=== PATIENT | female | born 1955 | race African-American/Black ===

== ENCOUNTER 2023-03-19 13:49 | Emergency (ER) | payer BC, OTHER ==
[~2023-03-19] VITALS: Ht 160 cm; Wt 54.4 kg
[2023-03-19 13:54] VITALS: BP_SYST 149
--- NOTE | 2023-03-19 14:10 | NUR ---
PT BIB AWAKE AND ALERT AOX4. NO SOB. PT C/O OF L EYE REDNESS STARTING LAST NIGHT. PT DENIES PAIN. PT HAS A HX OF HTN, DM2, ASTHMA, ANXITY, DM2.
--- NOTE | 2023-03-19 14:12 | NUR ---
MD DR OCHOA AT BEDSIDE
[2023-03-19 14:47] VITALS: BP_SYST 136
--- NOTE | 2023-03-19 14:48 | NUR ---
Patient given written and verbal discharge instructions and verbalizes understanding. ER MD DR OCHOA discussed with patient the results and treatment provided. Patient in stable condition. ID arm band removed. Patient educated on pain management and to follow up with PMD. Pain Scale 0/10. Opportunity for questions provided and answered. Medication side effect fact sheet provided.
== END 2023-03-19 14:48 | disposition home or self-care (01) ==
LOC: SED 13:49
DX: H11.32 Conjunctival hemorrhage, left eye (principal); H57.89 Other specified disorders of eye and adnexa; E11.9 Type 2 diabetes mellitus without complications; I10 Essential (primary) hypertension; Z79.899 Other long term (current) drug therapy
CPT/HCPCS: 99281

== ENCOUNTER 2023-11-20 15:52 | Emergency (ER) | payer OTHER ==
[~2023-11-20] VITALS: Ht 165.1 cm; Wt 65.8 kg
[2023-11-20] MEDS ORDERED: MECLIZINE HCL 25 MG TABLET (ANITVERT) PO ONE (16:30)
[2023-11-20] MEDS ORDERED: METOCLOPRAMIDE HCL 10 MG/2 ML VIAL IVP ONE (16:30)
[2023-11-20 16:31] VITALS: BP_SYST 144; PULSE 93; RESP 17; TEMP 98.7; O2SAT 98
[2023-11-20 16:59] LABS: BASOPHILS % (AUTO) 0.5 % (0.0-2.0); EOSINOPHILS # (AUTO) 0.2 K/uL (0.0-0.4); EOSINOPHILS % (AUTO) 2.1 % (0.0-4.0); HEMATOCRIT 35.7 % (36-48); LYMPHOCYTES # (AUTO) 1.8 K/uL (1.0-5.5); LYMPHOCYTES % (AUTO) 23.9 % (20.5-51.5); MEAN CORPUSCULAR HEMOGLOBIN 27 pg (27-31); MEAN CORPUSCULAR HGB CONC 34 % (32-36); MEAN CORPUSCULAR VOLUME 80 fL (79.0-98.0); MONOCYTES # (AUTO) 0.4 K/uL (0.0-1.0); MONOCYTES % (AUTO) 5.6 % (1.7-9.3); NEUTROPHILS # (AUTO) 5.1 K/uL (1.8-7.7); NEUTROPHILS % (AUTO) 67.9 % (40.0-70.0); PLATELET COUNT (AUTO) 227 K/uL (130-430); RED BLOOD CELL COUNT(AUTO) 4.48 MIL/uL (4.2-6.2); WHITE BLOOD COUNT (AUTO) 7.5 K/uL (4.8-10.8)
[2023-11-20 17:08] LABS: ANION GAP 12 (5-15); CALCIUM 9.3 mg/dL (8.4-11.0); CARBON DIOXIDE 23 mmol/L (23-29); CHLORIDE 103 mmol/L (98-107); CREATININE 1.07 mg/dL (0.55-1.30); GLUCOSE 189 mg/dL (74-106); POTASSIUM 3.7 mmol/L (3.5-5.1); SODIUM SERUM 138 mmol/L (136-145); UREA NITROGEN, BLOOD 11 mg/dL (8-21)
[2023-11-20 17:13] LABS: ALANINE AMINOTRANSFERASE 33 U/L (12-78); ALBUMIN 3.7 g/dL (3.4-4.8); ASPARTATE AMINOTRANSFERASE 21 U/L (10-37); BILIRUBIN,DIRECT 0.1 mg/dL (0.0-0.3); CREATINE KINASE, TOTAL 73 U/L (26-192); TOTAL BILIRUBIN 0.3 mg/dL (0.0-1.0)
[2023-11-20 17:18] LABS: GFR AFRICAN AMERICAN 65 mL/min (>90); GFR NON AFRICAN-AMERICAN 54 mL/min (>90)
[2023-11-20 17:23] LABS: PROTHROMBIN TIME 10.1 SECS (9.5-12.5)
[2023-11-20] MEDS ORDERED: MECL-261 PO (18:26)
[2023-11-20] MEDS ORDERED: MECLIZINE HCL 25 MG TABLET (ANITVERT) ONE (18:45)
[2023-11-20 19:11] VITALS: BP_SYST 146; PULSE 95; RESP 15; TEMP 98.7; O2SAT 99
== END 2023-11-20 19:11 | disposition home or self-care (01) ==
LOC: SED 15:52
DX: R42 Dizziness and giddiness (principal); R11.0 Nausea; E11.9 Type 2 diabetes mellitus without complications; I10 Essential (primary) hypertension; Z79.899 Other long term (current) drug therapy
CPT/HCPCS: 99285; 70450; 71045; 80076; 80048; 82550; 85025; 85610; 85730; 84484; 36415; 93005; 76376; J8597